=== PATIENT | female | born 1975 | race African-American/Black ===

== ENCOUNTER 2017-11-24 11:51 | Emergency (ER) | payer BC, OTHER ==
[2017-11-24 11:57] VITALS: BP 110/70; PULSE 92; TEMP 98.2; BMI 28.3
--- NOTE | 2017-11-24 12:19 | PDOC ---
History of Present Illness - General Chief Complaint: Headache Stated Complaint: HEADACHE Time Seen by Provider: 11/24/17 12:09 History Source: Patient Exam Limitations: No Limitations - History of Present Illness Initial Comments: 11/24/17 12:15 42 yr female history of bipolar, HTN, TIA presents with frontal headache for 2 days neg nausea neg vomiting or fever. Pt states she watched an upsetting video and that caused the headache 2 days ago. Pt took her BP at home noted to be elevated, however unsure of the number. Pt denies neck pain , no chest pain. Past History - Past Medical History Allergies/Adverse Reactions: Allergies Allergy/AdvReac Type Severity Reaction Status Date / Time No Known Allergies Allergy Verified 11/24/17 11:53 Home Medications: Ambulatory Orders Fluticasone/Salmeterol [Advair Hfa 115-21 Mcg Inhaler] 1 inh PO BID 10/21/14 Amlodipine Besylate 10 mg PO DAILY 06/05/15 Gabapentin 1,200 mg PO HS 06/05/15 Diclofenac Sodium [Voltaren] 100 gm TP TID 08/07/15 Ergocalciferol (Vitamin D2) [Vitamin D] 50,000 unit PO WEEKLY 08/07/15 metroNIDAZOLE 0.75% VAG. GEL [Metrogel 0.75% *Vaginal Gel* -] 1 applic VG HS #7 tube 11/24/17 Asthma: Yes Cancer: No Cardiac Disorders: No CVA: No COPD: Yes CHF: No Dementia: No Diabetes: No GI Disorders: No Disorders: No HTN: Yes Liver Disease: No Seizures: No Thyroid Disease: No - Immunization History Immunization Up to Date: Yes - Suicide/Smoking/Psychosocial Hx Smoking History: Never smoked Have you smoked in the past 12 months: No Number of Cigarettes Smoked Daily: 20 Information on smoking cessation initiated: No 'Breaking Loose' booklet given: 05/16/13 Hx Alcohol Use: No Drug/Substance Use Hx: No Substance Use Type: None Hx Substance Use Treatment: No *Physical Exam - Vital Signs Last Vital Signs Temp Pulse Resp BP Pulse Ox 98.2 F 92 H 17 110/70 99 11/24/17 11:53 11/24/17 11:53 11/24/17 11:53 11/24/17 11:53 11/24/17 11:53 - Physical Exam General Appearance: Yes: Nourished, Appropriately Dressed HEENT: positive: EOMI, KEIKO Neck: positive: Supple. negative: Tender, Tender lateral, Tender midline Respiratory/Chest: positive: Lungs Clear, Normal Breath Sounds Cardiovascular: positive: Regular Rhythm, Regular Rate Gastrointestinal/Abdominal: positive: Normal Bowel Sounds, Soft Rectal Exam: positive: deferred Lymphatic: negative: Adenopathy Musculoskeletal: positive: Normal Inspection Extremity: positive: Normal Capillary Refill, Normal Inspection, Normal Range of Motion Integumentary: positive: Normal Color, Dry, Warm Neurologic: positive: Fully Oriented, Alert, Normal Mood/Affect, Normal Response , Motor Strength 5/5, Finger to Nose (intact). negative: Facial Droop, Numbness , Sensory Deficit, Confused, Disoriented, Depressed Affect, Babinski Medical Decision Making - Medical Decision Making 11/24/17 12:17 cc: headache , neg photophobia neg nausea or vomiting pt took 360mg Aspirin LABOR/EXCAVATOR states pain has improved will get head CT pt also asking for medication for possible BV infection, pt states she has foul fishy vaginal odor, has had BV in the past. *DC/Admit/Observation/Transfer Diagnosis at time of Disposition: Headache Qualifiers: Headache type: unspecified Headache chronicity pattern: acute headache Intractability: not intractable Qualified Code(s): R51 - Headache - Discharge Dispostion Disposition: HOME Condition at time of disposition: Good - Prescriptions Prescriptions: metroNIDAZOLE 0.75% VAG. GEL [Metrogel 0.75% *Vaginal Gel* -] 1 applic VG HS #7 tube - Referrals - Patient Instructions Additional Instructions: use the metrogel as directed for 7 nights take tylenol 650mg every 4-6hrs for pain or headache follow with your doctor tomorrow for follow up - Post Discharge Activity
== END 2017-11-24 13:11 | disposition home or self-care (01) ==
LOC: JERFT 11:51
DX: R51 Headache (principal); I10 Essential (primary) hypertension; F31.9 Bipolar disorder, unspecified; J44.9 Chronic obstructive pulmonary disease, unspecified; J45.909 Unspecified asthma, uncomplicated; Z86.73 Personal history of transient ischemic attack (TIA), and cerebral infarction without residual deficits
CPT/HCPCS: 70450-TC; 84703; 99281-25